=== PATIENT | male | born 1995 | race Caucasian/White ===

== ENCOUNTER 2016-12-05 20:04 | Emergency (ER) | payer OTHER ==
[~2016-12-05 20:04] MED LIST: FLOMAX(MONOGRA0.4 MG PO; MOTRIN 600 MG600 MG PO; PERCOCET 325 MG1 TA2 PO
[2016-12-05 20:32] LABS: ABSOLUTE BASOPHIL COUNT 0.1 /CUMM (0.0-0.2); ABSOLUTE EOSINOPHIL COUNT 0.1 /CUMM (0.0-0.7); ABSOLUTE GRANULOCYTE CT 5.7 /CUMM (1.4-6.5); ABSOLUTE LYMPH COUNT 2.8 /CUMM (1.2-3.4); ABSOLUTE MONOCYTE COUNT 0.9 /CUMM (0.10-0.60); BASOPHIL % 0.5 % (0.0-2.0); EOSINOPHIL % 0.9 % (0-5); GRANULOCYTE % 59.6 % (42.2-75.2); HEMATOCRIT 46.4 % (42-52); MEAN CORPUSCULAR HGB 29.5 PG (27.0-31.0); MEAN CORPUSCULAR HGB CONC 34.3 G/DL (33.0-37.0); MEAN PLATELET VOLUME 7.3 FL (7.4-10.4); PLATELET COUNT 277 /CUMM (130-400); RBC DISTRIBUTION WIDTH 12.8 % (11.5-14.5); WHITE BLOOD CELL COUNT 9.6 /CUMM (4.8-10.8)
--- NOTE | 2016-12-05 20:42 | ED GI/GU/ABDOMINAL COMPLAINT ---
History of Present Illness General Chief Complaint: Abdominal Pain/Flank Pain Stated Complaint: LEFT SIDED FLANK PRESS, HX KIDNEY STONES Source: patient Exam Limitations: no limitations Vital Signs & Intake/Output Vital Signs & Intake/Output Vital Signs Date Time Temp Pulse Resp B/P Pulse O2 O2 Flow FiO2 Ox Delivery Rate 12/05 2137 98.1 80 16 138/88 97 Room Air 12/05 2008 98.3 76 16 141/99 96 Room Air Allergies Coded Allergies: MDX - Fruits (FRUITS) (THROAT SCRATCHY 08/26/15) Reconcile Medications Ibuprofen (Motrin 600 MG Tab) 600 MG TAB 1 TAB PO Q6P PRN PAIN OXYCODONE HCL/ACETAMINOPHEN (Percocet 5-325 MG Tablet) 325 MG/5 MG TAB 1-2 TAB PO Q4-6 PRN PRN severe pain Tamsulosin Hydrochloride (Flomax) 0.4 MG CAP 1 CAP PO DAILY kidney stone Triage Note: TRIAGE; PT TO ED C/O LT SIDED ABDOMINAL PAIN. HAS HX OF KIDNEY STONES, STATES FEELS DIFFERENT. DENIES ANY URINARY S/S. DENIES ANY N/V. Triage Nurses Notes Reviewed? yes Onset: Gradual Duration: day(s): (4) Timing: remote history Quality/Severity: fullness Severity Numbers: 5 Location: left flank Radiation: no radiation Activities at Onset: none Prior Abdominal Problems: similar symptoms Past Sexual History: Unobtainable at this time No Modifying Factors: none HPI: Patient is a 21-year-old male with no known past medical history presenting to the emergency department with chief complaint of left flank pain that intermittently radiates to the left groin. Pain started 4 days ago. Pain is intermittent. Pressure nature. Denies any associated nausea vomiting fevers or chills. Denies any urinary frequency or urgency or dysuria. Has not been taking anything for pain. No sick contacts or recent travel. He reports history of similar pain when he had a kidney stone on the right side last year. Denies any weight changes. Still eating and drinking without difficulty. Denies any injury. Nothing seems to make the pain better or worse. No chest pain or shortness of breath. Denies coughing. Upper respiratory symptoms. no back pain. (JOSE RAYO) Past History Travel History Traveled to [place] past 21 day No Medical History Any Pertinent Medical History? see below for history Cardiovascular: MVP Renal: KIDNEY STONES Surgical History Surgical History: non-contributory Psychosocial History What is your primary language Egyptian Tobacco Use: Never used Family History Hx Contributory? No (JOSE RAYO) Review of Systems Review of Systems Constitutional: Reports: no symptoms. Comments Review of systems: See HPI, All other systems negative. Constitutional, no chills fever or weight loss HEENT: No visual changes no sore throat no congestion Cardiovascular: No chest pain ,palpitation Skin, no jaundice no rashes Respiratory: No dyspnea cough sputum or hemoptysis GI: No nausea no vomiting : No dysuria No hematuria Muscle skeletal: no back pain, no neck pain, Neurologic: No numbness no confusion Psych: No stress anxiety Immunology: No splenectomy or history of AIDS (JOSE RAYO) Physical Exam Physical Exam General Appearance: well developed/nourished, no apparent distress, alert, awake , comfortable Gastrointestinal: normal bowel sounds, soft, tenderness Comments: Well-developed well-nourished person in no acute distress HEENT: Pupils equally round and reactive to light and accommodation. Nose is atraumatic. Neck: Normal inspection Back: Nontender, no CVA tenderness. Cardiovascular: Regular rate and rhythms , mvp click, no gallops, normal JVP Respiratory: Chest nontender. No respiratory distress.breath sounds clear to auscultation bilaterally Abdomen: Soft, minimlally tender to palpation in the left flank, no rebound or guarding, nondistended, no appreciable organomegaly. Normal bowel sounds. No ascites Extremity: No edema Neuro: Alert oriented x3 Skin: No appreciable rash on exposed skin, skin is warm and dry. Psych: Mood and affect is normal, memory and judgment is normal. Core Measures ACS in differential dx? No Severe Sepsis Present: No Septic Shock Present: No (JOSE RAYO) Progress Differential Diagnosis: UTI/pyelo, lymphatics, hydronephrosis, kidney stone, gastroenteritis, colitis Plan of Care: Orders Procedure Date/time Status URINALYSIS 12/05 2009 Complete COMPREHENSIVE METABOLIC PANEL 12/05 2009 Complete CBC WITHOUT DIFFERENTIAL 12/05 2009 Complete Laboratory Tests 12/05/162025: Urine Color YEL, Urine Clarity CLEAR, Urine pH 6.0, Ur Specific [place] 1.025, Urine Protein NEG, Urine Ketones NEG, Urine Nitrite NEG, Urine Bilirubin NEG, Urine Urobilinogen 0.2, Ur Leukocyte Esterase NEG, Ur Microscopic EXAM NOT REQUIRED, Urine Hemoglobin NEG, Urine Glucose NEG 12/05/16 2015: Anion Gap 14, Estimated GFR > 60, BUN/Creatinine Ratio 15.0, Glucose 93, Calcium 10.1, Total Bilirubin 1.2, AST 57, ALT 51, Alkaline Phosphatase 77, Total Protein 8.6 H, Albumin 5.2 H, Globulin 3.4, Albumin/Globulin Ratio 1.5, CBC w Diff NO MAN DIFF REQ, RBC 5.40, MCV 86.0, MCH 29.5, RDW 12.8, MPV 7.3 L, Gran % 59.6, Lymphocytes % 29.5, Monocytes % 9.5 H, Eosinophils % 0.9, Basophils % 0.5 , Absolute Granulocytes 5.7, Absolute Lymphocytes 2.8, Absolute Monocytes 0.9 H , Absolute Eosinophils 0.1, Absolute Basophils 0.1, PUBS MCHC 34.3 Diagnostic Imaging: Viewed by Me: CT Scan. Discussed w/RAD: CT Scan. Radiology Impression: PATIENT: FABIAN ESPANA PRESENT AGE: 21 PATIENT ACCOUNT NO: [id number] : 94 LOCATION: [facility] ORDERING PHYSICIAN: JOSE KRUSE SERVICE DATE: 12/05/16 EXAM TYPE: CAT - CT ABD & PELVIS W/O IV CONTRAS EXAMINATION: CT ABDOMEN AND PELVIS WITHOUT CONTRAST CLINICAL INFORMATION: Left flank pain. COMPARISON: None. TECHNIQUE: Multidetector volumetric imaging was performed from the superior aspect of the liver through the pubic symphysis. Sagittal and coronal reformatted images were obtained on the technologist's workstation. DLP: 239.59 mGy-cm. FINDINGS: LUNG BASES: The visualized lung bases are unremarkable. LIVER, GALLBLADDER, AND BILIARY TREE: The liver is normal in size, shape, and attenuation. No focal hepatic lesion or biliary ductal dilatation is present. The gallbladder is unremarkable with no evidence of radiopaque gallstones, gallbladder wall thickening, or obvious pericholecystic inflammatory changes. PANCREAS: Unremarkable. SPLEEN: Unremarkable. ADRENAL GLANDS: Unremarkable. KIDNEYS AND URETERS: Less than 1 mm sized nonobstructive stone lower pole right kidney. No stone in left kidney. No ureteral calculi. There is no hydronephrosis. BLADDER: Bladder nearly empty. No bladder stone. GASTROINTESTINAL TRACT: Moderate to large-volume of stool in colon. No dilated bowel loop. No bowel obstruction. No bowel wall thickening or edema. The appendix is normal. The small bowel loops are unremarkable. ABDOMINAL WALL: No significant hernia is appreciated. LYMPH NODES: Normal. VASCULAR: Unremarkable. PELVIC VISCERA: Unremarkable. OSSEOUS STRUCTURES: Unremarkable. IMPRESSION: Normal left kidney and ureter. There is a less than 1 mm stone in lower pole of right kidney which is nonobstructive. No hydronephrosis of either kidney or ureter. Initial ED EKG: none Comments: Decline pain medication on arrival. Patient is afebrile in no acute distress sitting comfortably on the stretcher. Patient has minimally reproducible pain over the left flank. Urinalysis is unremarkable. No elevation of blood cell count. CAT scan is unremarkable as well. He'll follow-up with his primary care physician. Cannot exclude muscle strain. Patient nontoxic. (JOSE RAYO) Departure Departure Time of Disposition: 2123 Disposition: HOME OR SELF CARE Condition: Stable Clinical Impression Primary Impression: Flank pain Referrals: PATIENT HAS NO PRIMARY CARE DR (PCP/Family) Additional Instructions: Follow-up with your primary care physician call to make an appointment. Increase fluids. Take [id number] Tylenol or Motrin for pain. Return for worsening symptoms or concerns. Departure Forms: Customer Survey General Discharge Information (JOSE RAYO) PA/[employer] CONSULTANT Co-Sign Statement Statement: ED Attending supervision documentation- [] I saw and evaluated the patient. I have also reviewed all the pertinent lab results and diagnostic results. I agree with the findings and the plan of care as documented in the PA's/[facility] CONSULTANT's documentation. [X] I have reviewed the ED Record and agree with the PA's/[employer] CONSULTANT's documentation. [] Additions or exceptions (if any) to the PAs/[facility] CONSULTANT's note and plan are summarized below: [] (FLORIAN COLLADO,DARYN Mir)
--- NOTE | 2016-12-05 21:20 | CT SCAN REPORT ---
EXAMINATION: CT ABDOMEN AND PELVIS WITHOUT CONTRAST CLINICAL INFORMATION: Left flank pain. COMPARISON: None. TECHNIQUE: Multidetector volumetric imaging was performed from the superior aspect of the liver through the pubic symphysis. Sagittal and coronal reformatted images were obtained on the technologist's workstation. DLP: 239.59 mGy-cm. FINDINGS: LUNG BASES: The visualized lung bases are unremarkable. LIVER, GALLBLADDER, AND BILIARY TREE: The liver is normal in size, shape, and attenuation. No focal hepatic lesion or biliary ductal dilatation is present. The gallbladder is unremarkable with no evidence of radiopaque gallstones, gallbladder wall thickening, or obvious pericholecystic inflammatory changes. PANCREAS: Unremarkable. SPLEEN: Unremarkable. ADRENAL GLANDS: Unremarkable. KIDNEYS AND URETERS: Less than 1 mm sized nonobstructive stone lower pole right kidney. No stone in left kidney. No ureteral calculi. There is no hydronephrosis. BLADDER: Bladder nearly empty. No bladder stone. GASTROINTESTINAL TRACT: Moderate to large-volume of stool in colon. No dilated bowel loop. No bowel obstruction. No bowel wall thickening or edema. The appendix is normal. The small bowel loops are unremarkable. ABDOMINAL WALL: No significant hernia is appreciated. LYMPH NODES: Normal. VASCULAR: Unremarkable. PELVIC VISCERA: Unremarkable. OSSEOUS STRUCTURES: Unremarkable. IMPRESSION: Normal left kidney and ureter. There is a less than 1 mm stone in lower pole of right kidney which is nonobstructive. No hydronephrosis of either kidney or ureter.
[2016-12-05 21:38] VITALS: BP 138/88
== END 2016-12-05 21:40 ==
LOC: ERH 20:04
PROVIDERS: Emergency Medicine
DX: R10.32 Left lower quadrant pain (principal)
CPT/HCPCS: 74176; 81003